=== PATIENT | female | born 1955 | race Caucasian/White ===

== ENCOUNTER 2016-12-12 17:55 | Inpatient (IN) | payer OTHER ==
[2016-12-12 19:54] LABS: Hematocrit 40 % (35-47); Hemoglobin 13.1 g/dl (12.0-16.0); Mean Corpuscular HGB Conc 33 g/dl (31-36); Mean Corpuscular Hemoglobin 28 pg (27-31); Mean Corpuscular Volume 84 fL (80-97); Mean Platelet Volume 8 um3 (7.4-10.4); Red Blood Count 4.72 10^6/ul (4.0-5.4); Red Cell Distribution Width 14 % (10.5-15); White Blood Count 3.8 10^3/ul (3.5-10.8)
[2016-12-12 19:59] LABS: Albumin 4.1 g/dL (3.2-5.2); BUN/Creatinine Ratio 17.9 (8-20); Calcium 9.4 mg/dL (8.6-10.3); EGFR African American 89.2 (>60); EGFR Non-African American 69.4 (>60); Globulin 3.4 g/dL (2-4); Potassium 4.1 mmol/L (3.5-5.0); Total Bilirubin 0.3 mg/dL (0.2-1.0); Total Protein 7.5 g/dL (6.4-8.9)
[2016-12-12] MEDS ORDERED: Heparin VIAL(*) 5000 UNITS/ML VIAL (FIVE THOUSAND) IV SCH (20:00)
[2016-12-12] MEDS: Gabapentin CAP(*) 300 MG PO SCH ×2 (20:06→20:24)
--- NOTE | 2016-12-12 20:51 | ED ---
Shemar Ambrose Aidan, scribed for Homer Carey MD on 12/12/16 at 202 . Headache - HPI Summary HPI Summary: 61 y/o female presents to the ED with a complaint of acute, moderate episodes of FOSTER that have persisted intermittently for months. She sees Dr. Mckeon, who recently found that she had a kulwant occlusion her left dural sinus. Associated symptoms include swelling on her left presybeterian. - History Of Current Complaint Chief Complaint: EDNeurologicalDeficit Stated Complaint: BLOOD CLOT Time Seen by Provider: 12/12/16 18:14 Hx Obtained From: Patient Onset/Duration: Sudden Onset, Still Present Initially Headache Was: Moderate Currently Pain Is: Moderate Timing: Intermittent, Lasting: - episodes have persisted for "months" Character: Unable To Describe Location of Headache: Diffuse Aggravating Factor: Other - unknown Allevating Factors: Other (Noted In Comments) - unknown Associated Signs And Symptoms: Other (Noted In Comments) - swelling on left presybeterian - Allergies/Home Medications Allergies/Adverse Reactions: Allergies Allergy/AdvReac Type Severity Reaction Status Date / Time Sulfa Antibiotics Allergy RASH/SOB Verified 12/09/16 08:55 Home Medications: Home Medications FLUoxetine CAP* [Prozac CAP*] 10 mg PO DAILY 12/12/16 [History Confirmed ] Gabapentin CAP(*) [Neurontin 100 mg CAP(*)] 200 mg PO BID 12/12/16 [History Confirmed 12/12/16] PMH/Surg Hx/FS Hx/Imm Hx Endocrine/Hematology History: Denies: Hx Diabetes Cardiovascular History: Denies: Hx Hypertension, Hx Pacemaker/ICD History: Denies: Hx Renal Disease Sensory History: Denies: Hx Hearing Aid Psychiatric History: Denies: Hx Panic Disorder - Surgical History Surgery Procedure, Year, and Place: 2 C SECTIONS. D & C. LIPOMAS REMOVED FROM BACK. LUMP REMOVED FROM LEFT FOOT Infectious Disease History: No Infectious Disease History: Denies: Traveled Outside the [place] in Last 30 Days - Family History Known Family History: Positive: Hypertension - Social History Occupation: Retired Lives: Alone Alcohol Use: Rare Substance Use Type: Reports: None Smoking Status (MU): Never Smoked Tobacco Review of Systems Constitutional: Negative Eyes: Negative ENT: Negative Respiratory: Negative Gastrointestinal: Negative Genitourinary: Negative Musculoskeletal: Negative Skin: Other - swelling at right presybeterian Negative: Rash, Bruising Positive: Headache. Negative: Weakness, Paresthesia, Numbness, Syncope, Slurred Speech Psychological: Normal All Other Systems Reviewed And Are Negative: Yes Physical Exam Triage Information Reviewed: Yes Vital Signs On Initial Exam: Initial Vitals Temp Pulse Resp BP Pulse Ox 98.1 F 83 18 124/80 95 12/12/16 17:57 12/12/16 17:57 12/12/16 17:57 12/12/16 17:57 12/12/16 17:57 Vital Signs Reviewed: Yes Appearance: Positive: Well-Appearing, No Pain Distress Skin: Positive: Warm, Skin Color Reflects Adequate Perfusion, Dry Head/Face: Positive: Normal Head/Face Inspection, Other - swollen area in left temporal that is nontender, I can feel a temporal pulse through it Eyes: Positive: Normal ENT: Positive: Normal ENT inspection Neck: Positive: Supple, Nontender Respiratory/Lung Sounds: Positive: Clear to Auscultation, Breath Sounds Present Cardiovascular: Positive: RRR Abdomen Description: Positive: Nontender, Soft Bowel Sounds: Positive: Present Musculoskeletal: Positive: Normal Neurological: Positive: Normal Psychiatric: Positive: Affect/Mood Appropriate - Brody Coma Scale Coma Scale Total: 15 Diagnostics - Vital Signs Vital Signs Temp Pulse Resp BP Pulse Ox 12/12/16 18:29 98.1 F 79 16 119/76 98 12/12/16 17:57 98.1 F 83 18 124/80 95 - Laboratory Result Diagrams: 12/12/16 19:41 12/12/16 19:41 Lab Statement: Any lab studies that have been ordered have been reviewed, and results considered in the medical decision making process. Headache Course/Dx - Course Course Of Treatment: Dr. Mckeon recently found that the patient had a kulwant occlusion her left dural sinus. She is very stable and will be admitted for anticoagulation. - Diagnoses Provider Diagnoses: Cerebral venous sinus thrombosis Discharge - Discharge Plan Condition: Stable Disposition: ADMITTED TO [facility] documentation as recorded by the Shemar burks Aidan accurately reflects the service I personally performed and the decisions made by me, Homer Carey MD.
[2016-12-12] MEDS: Acetaminophen TAB* 325 MG PO PRN (20:59)
--- NOTE | 2016-12-12 21:56 | CONS ---
CC: Lydia Maza NP; Avani Mckeon MD NEUROLOGY CONSULTATION: DATE OF CONSULTATION: 12/12/16 REFERRING PROVIDER: Dick Barnes MD LOCATION: She is in the emergency room to be admitted. CHIEF COMPLAINT: Headaches. HISTORY OF PRESENT ILLNESS: Sonali You is a 61-year-old woman who has a remote history of migrain es, which were infrequent by her report until about July. At that point, she started pain in th e left posterior neck region and somewhat down at the shoulder. She was concerned it might have bee n a recurrence of shingles. She started to get pain more in the left occipital area and became pret ty persistent. It would fluctuate in severity from a 2 up to a 9. She would develop photophobia wit h it and have some nausea, but not vomiting. There are no visual symptoms. She was taking Excedrin pretty regularly and then saw Dr. Avani Mckeon in consultation on 11/28/16. She reported some numbn ess on her forehead, I believe on the left side, but no other significant sensory symptoms. PAST MEDICAL HISTORY: Notable for arthritis. Negative rheumatoid workup. She has a history of anx iety and depression. History of migraines as described above. MEDICATIONS: At home consist of: 1. Fluoxetine 10 mg p.o. daily. 2. Gabapentin 100 mg p.o. b.i.d. 3. Ibuprofen, she was taking for headaches 600 mg up to twice per day. ALLERGIES: She is allergic to SULFA antibiotics. REVIEW OF SYSTEMS: Notable for worsened anxiety and depression. She was continually worried about her daughter, who is a patient of mine. She had congenital biliary stenosis and required a liver tr ansplant at about a year of age. She had perioperative strokes and seizures, which were hard to cont rol for many years. Her daughter has done very well, however, in recent years with well- controlled seizures and is an claims attorney and has run marathons. FAMILY HISTORY: Negative for clotting disorders. Nobody has had deep vein thrombosis or pulmonary emboli. The patient herself does not experience shortness of breath. She has experienced some leg swelling in both legs, but no calf pain. SOCIAL HISTORY: She is a nonsmoker. She does not drink alcohol. She lives alone. PHYSICAL EXAMINATION: She is well nourished and well hydrated. She has mild ankle edema bilaterall y. Calves are nontender. Heart is in a regular rate and rhythm. Lungs are clear. Neck: Range of motion is full. Neurologically, pupils react equally from 3.5 to 2 mm. There is no afferent pupillary defect. Fund uscopic exam reveals sharp disks bilaterally. There is no ptosis. Facial musculature is symmetric. Facial sensation to light touch is symmetric. Speech is clear without dysarthria. She has normal muscle tone and strength in the limbs. She is a little tremulous. Gait is normal. She is alert and oriented and extremely loquacious. She is very anxious. Language is fluent. DIAGNOSTIC DATA: Includes an MRI of the brain on 12/09/16, which is reviewed and reveals loss of fl ow void in the left transverse sinus and sigmoid sinus. Dr. Williamson called me that evening. We arra nged for an MR venogram, which was done today. There is evidence of a partial filling defect in the left transverse sinus. It is not entirely occlusive and the rest of the MR venogram looks normal. She had an MRI of the cervical spine on 12/09/16, which revealed some degenerative changes, but no s gilma cord involvement and no significant central canal stenosis. There is no recent blood test to review. She did have a sedimentation rate on 11/28/16 normal at 14 , CRP of 2.0 on the same date, negative rheumatoid factor, SSA and SSB antibodies. SEDA was negative as well. IMPRESSION: Partial cerebral vein thrombosis. I am not sure if it is the cause for headache syndro me, but it certainly could be. I do not see evidence of papilledema. There is no history of clotti ng disorder. RECOMMENDATIONS: I recommend she have blood work drawn for hypercoagulable state to include antipho spholipid antibodies, lupus anticoagulant, activated protein C resistance, protein C, protein S, ant ithrombin III, Leiden factor V and prothrombin gene mutations. After that, I am going to recommend she be started on heparin without boluses. I would recommend that she planned to be transitioned to Coumadin provided she does not develop any hemorrhagic problems in the interim. Her headache shoul d be treated symptomatically with mild opioids or other mild analgesics but nonsteroidals should pro bably be avoided with anticoagulation. She is very anxious and I would recommend increasing gabapen tin and using benzodiazepines on a short-term basis as needed. Discussed my impression with Dr. Barnes and we will follow her with you. [id number]/CPS #: [id number]
--- NOTE | 2016-12-12 22:13 | HP ---
HISTORY AND PHYSICAL: DATE OF ADMISSION: 12/12/16 PRIMARY CARE PHYSICIAN: Lydia Maza NP CHIEF COMPLAINT: Headache, abnormal outpatient MRI. HISTORY OF PRESENT ILLNESS: Ms. You is a pleasant 61-year-old female with a past medical history of arthritis; LUZ, not on CPAP; osteoporosis; and depression/anxiety who presents to the hospital with a headache. The patient states her symptoms have been going on since July. The headache has been one-sided and mostly on the left with occasionally radiation to the neck. The pain seems to wax and wane. The patient also reports some numbness and tingling on the left side of the head. The patient was seen a number of times by Neurology as an outpatient and recently underwent an MRV that showed evidence of venous sinus thrombosis, so the patient was referred to the hospital for further workup and treatment. The patient has had some nausea and vomiting associated with the headaches. She states she has had some joint pain , which is chronic for her. No chest pain. No significant shortness of breath. PAST MEDICAL HISTORY: Arthritis, LUZ, osteoporosis, and depression/anxiety. PAST SURGICAL HISTORY: x2, lipoma removal. HOME MEDICATIONS: 1. Gabapentin 200 mg by mouth 2 times daily. 2. Fluoxetine 10 mg by mouth daily. ALLERGIES: SULFA DRUGS. FAMILY HISTORY: Significant for her mother with fibrohistiocytoma, father with CHF and peripheral vascular disease. Paternal grandmother with CVA. SOCIAL HISTORY: The patient has no history of tobacco abuse. Rare alcohol use. No illicit drug use. REVIEW OF SYSTEMS: I think the patient's review of systems are likely driven significantly by anxiety. She reports joint pains, occasional subjective chills , occasional epigastric and left upper quadrant pain. Denies any dysuria. Remainder of 12-point review of systems negative except for that is noted in the HPI. PHYSICAL EXAMINATION GENERAL: The patient is a middle-aged female, sitting in chair, in no apparent distress. VITAL SIGNS: On admission, temperature 98.1, heart rate of 79, respiratory rate of 16, O2 saturation 98% on room air, blood pressure is 119/76. HEENT: Pupils are equal, round, and reactive to light and accommodation. Anicteric sclerae. Moist mucous membranes. CARDIOVASCULAR: Regular rate and rhythm. S1, S2 present. No murmurs, gallops , and rubs. LUNGS: Clear to auscultation bilaterally. Some mild right upper lobe rales. ABDOMEN: Soft, nontender, nondistended. Bowel sounds positive. EXTREMITIES: No cyanosis, clubbing, or edema. NEURO: The patient is alert and oriented x3. Questionable diminished sensation on V1 on the left side. Otherwise, neuro exam is unremarkable. DIAGNOSTIC STUDIES/LAB DATA: Labs pending at this time. Outpatient MRI from today shows findings consistent with slow flow within the left transverse and sigmoid system with a filling defect consistent with nonocclusive thrombus. ASSESSMENT AND PLAN: Venous sinus thrombosis in a 61-year-old female with a past medical history of arthritis, obstructive sleep apnea, osteoporosis, depression, and anxiety. 1. Venous sinus thrombosis. Appreciate Neurology assistance. We will start the patient on a heparin drip, we will order hypocoagulable workup. We will need to determine what the plan for more long-term therapy will be. We will increase the patient's gabapentin to 300 mg 2 times daily. We will also write for additional analgesics. 2. Depression and anxiety. We will continue the patient's home fluoxetine. We will also write for Xanax as needed for anxiety. 3. DVT prophylaxis. Heparin drip. 4. Code status. The patient is a full code. TIME SPENT: Total time spent on this admission 45 minutes with over half the time spent [id number] with the patient in counseling and coordinating care. CC: Lydia Maza NP * [id number]/CPS #: [id number] MTDD
[2016-12-12] MEDS: ALPRAZolam TAB* 0.25 MG PO PRN (23:07)
[2016-12-12] MEDS: Heparin DRIP 25,000 UNITS(*) 25,000 UNITS/500 ML BAG IVPB SCH (23:14)
[2016-12-13] MEDS: Acetaminophen TAB* 325 MG PO PRN (05:47)
[2016-12-13] MEDS: Gabapentin CAP(*) 300 MG PO SCH ×2 (07:37→20:10)
[2016-12-13] MEDS: FLUoxetine CAP* 10 MG PO SCH (07:40)
[2016-12-13] MEDS: oxyCODONE TAB* 5 MG TAB PO PRN ×2 (11:49→22:23)
--- NOTE | 2016-12-13 11:49 | CONS ---
NEUROLOGY FOLLOWUP NOTE: DATE OF FOLLOWUP: 12/13/16 HOSPITALIST: Dr. Corcoran. LOCATION: She is in room 408. CHIEF COMPLAINT: Headache, cerebral vein thrombosis. INTERVAL HISTORY: Since yesterday Sonali continues with headache but feels that gabapentin is helpful. It remains in the left side and there is a burning component in the left occiput and shoulder. It started out with a rash in the left shoulder, which was felt to be shingles. Her cerebral vein thrombosis is on the right; however, so it is not clearly related. MEDICATIONS: Reviewed and she is started on Coumadin today and remains on heparin infusion. Gabapentin 300 mg p.o. b.i.d., alprazolam 0.25 mg p.o. q.8 hours p.r.n. PHYSICAL EXAM: She is well-hydrated and well-nourished. Temperature 98.3 orally, blood pressure 94/49, heart rate in the 80s and regular, and respirations 16. Neck: Range of motion is normal. There are no cervical bruits. Neurologically, pupils are equal and reactive to light from 4 to 2.5 mm. Funduscopic exam reveals sharp discs. There is no ptosis. Eye movements are full. There is no diplopia. Facial musculature is symmetric. Palate and tongue are normal and speech is clear. Language is fluent and memory is intact. IMPRESSION: Cerebral vein thrombosis, questionably causing her headaches. In any case, it does appear to be real on both MRI and MR venogram and so anticoagulation will proceed. Coumadin has been started. Target INR should be 2.0 to 3.0. Headaches are at least partially controlled on gabapentin and that will be continued. We will continue to follow. [id number]/[facility] #: [id number] [facility]
--- NOTE | 2016-12-13 15:58 | PN ---
Subjective Date of Service: 12/13/16 Interval History: Patient c/o headache in the back of her head today. This is new. Objective Active Medications: Acetaminophen (Tylenol Tab*) 650 mg PO Q4H PRN PRN Reason: PAIN Last Admin: 12/13/16 05:47 Dose: 650 mg Alprazolam (Xanax Tab*) 0.25 mg PO Q8H PRN PRN Reason: ANXIETY Last Admin: 12/12/16 23:07 Dose: 0.25 mg Fluoxetine HCl (Prozac Cap*) 10 mg PO DAILY [facility] Last Admin: 12/13/16 07:40 Dose: 10 mg Gabapentin (Neurontin Cap(*)) 300 mg PO BID [facility] Last Admin: 12/13/16 07:37 Dose: Not Given Heparin Sodium (Porcine) (Heparin Vial(*)) 0 units IV .PER PROTOCOL ASHWIN PRN Reason: Protocol Last Admin: 12/12/16 23:12 Dose: 5,850 units Heparin Sodium/Dextrose (Heparin Drip 25,000 Units(*)) 25,000 units in 500 mls @ 0 mls/hr IVPB .PER RATE ASHWIN; Per Protocol PRN Reason: Protocol Last Admin: 12/12/16 23:14 Dose: 25 mls/hr Oxycodone HCl (Roxycodone Tab*) 5 mg PO Q4H PRN PRN Reason: PAIN Last Admin: 12/13/16 11:49 Dose: 5 mg Pharmacy Profile Note (Coumadin Daily Reminder*) 1 note FOLLOW UP 1700 [facility] Warfarin Sodium (Coumadin Tab(*)) 5 mg PO DAILY@1700 [facility] PRN Reason: Protocol Vital Signs 12/12/16 12/12/16 12/12/16 19:30 19:42 19:45 Temperature 98.4 F 98.4 F Pulse Rate 74 74 Respiratory 16 16 16 Rate Blood Pressure 139/84 139/84 (mmHg) O2 Sat by Pulse 98 98 Oximetry 12/12/16 12/12/16 12/12/16 20:06 20:08 22:06 Temperature 98.1 F Pulse Rate 68 Respiratory 16 16 16 Rate Blood Pressure 120/83 (mmHg) O2 Sat by Pulse 97 Oximetry 12/12/16 12/12/16 12/12/16 23:07 23:29 23:30 Temperature 97.6 F Pulse Rate 69 Respiratory 16 16 Rate Blood Pressure 98/60 106/66 (mmHg) O2 Sat by Pulse 100 Oximetry 12/13/16 12/13/16 12/13/16 01:07 05:18 07:28 Temperature 97.8 F 98.3 F Pulse Rate 79 82 Respiratory 24 16 16 Rate Blood Pressure 99/56 94/49 (mmHg) O2 Sat by Pulse 97 99 Oximetry 12/13/16 12/13/16 12/13/16 11:42 11:49 13:49 Temperature 98.8 F Pulse Rate 74 Respiratory 16 18 20 Rate Blood Pressure 112/71 (mmHg) O2 Sat by Pulse 96 Oximetry Oxygen Devices in Use Now: None Appearance: WD/WN woman lying in bed in NAD Eyes: No Scleral Icterus Ears/Nose/Mouth/Throat: Clear Oropharnyx Neck: No Thyroid Enlargement, Masses Respiratory: Clear to Auscultation Cardiovascular: - - S1S2 daniela Abdominal: NL Sounds; No Tenderness; No Distention, No Hepatosplenomegaly Lymphatic: No Cervical Adenopathy Extremities: No Edema, No Clubbing, Cyanosis Skin: No Rash or Ulcers, No Nodules or Sclerosis Neurological: Alert and Oriented x 3 Result Diagrams: 12/12/16 19:41 12/12/16 19:41 Assess/Plan/Problems-Billing Assessment: 61 year old woman with headaches found to have kulwant thrombosis. - Patient Problems (1) Cerebral venous sinus thrombosis, acute Current Visit: Yes Status: Acute Code(s): G08 - INTRACRANIAL AND INTRASPINAL PHLEBITIS AND THROMBOPHLEBITIS SNOMED Code(s): 981878086 Comment: I am not convinced this is the cause of her headache. unusual that it would. Nevertheless, requires anticoagulation - continue heparin and coumadin. (2) Depression Current Visit: Yes Status: Acute Code(s): F32.9 - MAJOR DEPRESSIVE DISORDER , SINGLE EPISODE, UNSPECIFIED SNOMED Code(s): 73169715 Comment: Continue Fluoxetine (3) DVT prophylaxis Current Visit: Yes Status: Acute Code(s): RPD9019 - SNOMED Code(s): 018970490 Comment: heparin (4) Full code status Current Visit: Yes Status: Acute Code(s): Z78.9 - OTHER SPECIFIED HEALTH STATUS SNOMED Code(s): 083058128
[2016-12-13] MEDS: Warfarin TAB(*) 5 MG PO SCH (16:51)
[2016-12-13 21:52] LABS: Hematocrit 34 % (35-47); Hemoglobin 11.4 g/dl (12.0-16.0); Mean Corpuscular HGB Conc 33 g/dl (31-36); Mean Corpuscular Hemoglobin 28 pg (27-31); Mean Corpuscular Volume 84 fL (80-97); Mean Platelet Volume 8 um3 (7.4-10.4); Red Blood Count 4.07 10^6/ul (4.0-5.4); Red Cell Distribution Width 14 % (10.5-15); White Blood Count 3.7 10^3/ul (3.5-10.8)
[2016-12-13] MEDS: Heparin DRIP 25,000 UNITS(*) 25,000 UNITS/500 ML BAG IVPB SCH (22:20)
[2016-12-14] MEDS: oxyCODONE TAB* 5 MG TAB PO PRN ×3 (06:19→18:57)
[2016-12-14 07:23] LABS: Hematocrit 39 % (35-47); Hemoglobin 13.1 g/dl (12.0-16.0); Mean Corpuscular HGB Conc 33 g/dl (31-36); Mean Corpuscular Hemoglobin 28 pg (27-31); Mean Corpuscular Volume 84 fL (80-97); Mean Platelet Volume 9 um3 (7.4-10.4); Red Blood Count 4.67 10^6/ul (4.0-5.4); Red Cell Distribution Width 15 % (10.5-15); White Blood Count 3.5 10^3/ul (3.5-10.8)
[2016-12-14] MEDS: Gabapentin CAP(*) 300 MG PO SCH ×2 (09:12→21:01)
[2016-12-14] MEDS: FLUoxetine CAP* 10 MG PO SCH (09:12)
--- NOTE | 2016-12-14 13:37 | CONS ---
NEUROLOGY FOLLOWUP CONSULTATION: DATE OF FOLLOWUP: 12/14/16 LOCATION: She is an inpatient in [facility]. HOSPITALIST: Dr. Dick Barnes. CHIEF COMPLAINT: Head pain, cerebral vein thrombosis. INTERVAL HISTORY: Since yesterday Sonali's pain fluctuates between a 2 and 4 in response to oxycodone. She remains on gabapentin 300 mg twice per day as well. I went over the history with her again. It was about July she noted pain and hypersensitivity and a rash in the left scapular region. It migrated up until the left side of the neck and head. She has had fluctuating head pains ever since. She did not seek medical attention for it initially, I believe, it took at least a few weeks if not a couple of months. She continues to have hypersensitivity and pain in that distribution but it varies quite a bit. She remains extremely anxious and worried about catastrophic events and that she will not be able to care for her children who are both in their 30s and employed and at least one is . MEDICATIONS: Reviewed and she is: 1. Gabapentin 300 mg p.o. b.i.d. 2. Heparin infusion. 3. Warfarin currently 5 mg p.o. q. day. 4. Oxycodone 5 mg p.o. q.4 hours p.r.n. pain. 5. Fluoxetine 10 mg p.o. q. day. 6. Alprazolam 0.25 mg q.8 hours p.r.n. anxiety. PHYSICAL EXAM: She remains afebrile, blood pressure 132/79, heart rate in the 80s and regular. There are some old small circumscribed scars in the left scapular region and a little bit up in to the left shoulder out to the acromion. Facial musculature is symmetric. Speech is clear. I do not see any rashes on the back of the neck or skull. Pupils are equal. There is no ptosis. She remains anxious and occasionally tearful. She remains somewhat inattentive and hardly keeps on focus. LABORATORY DATA: Today notable for a normal CBC other than 51.6% lymphocytes. BUN today is 16. IMPRESSION: Cerebral vein thrombosis which may be secondary to Varicella zoster recurrence. There are reports is in the literature. Her pain is on the same side as the occlusion contrary to my note from yesterday which was erroneous. Although it is quite late in the onset of her syndrome, I think I will go ahead and start the antiviral in the form of famciclovir. She will continue intravenous heparin until her Coumadin is therapeutic. Her INR this morning is 0.91. She will continue gabapentin and hopefully we can get rid of the oxycodone pretty quickly as well. I have discussed the rationale to the antivirals as well as for the anticoagulants with Sonali once again. CC: Lydia Maza NP * [id number]/[facility] #: [id number] [facility]
--- NOTE | 2016-12-14 13:46 | PN ---
Subjective Date of Service: 12/14/16 Interval History: Patient says headache much better with Oxycodone. Objective Active Medications: Acetaminophen (Tylenol Tab*) 650 mg PO Q4H PRN PRN Reason: PAIN Last Admin: 12/13/16 05:47 Dose: 650 mg Alprazolam (Xanax Tab*) 0.25 mg PO Q8H PRN PRN Reason: ANXIETY Last Admin: 12/12/16 23:07 Dose: 0.25 mg Famciclovir (Famvir(Nf)) 500 mg PO TID [facility] Fluoxetine HCl (Prozac Cap*) 10 mg PO DAILY [facility] Last Admin: 12/14/16 09:12 Dose: 10 mg Gabapentin (Neurontin Cap(*)) 300 mg PO BID [facility] Last Admin: 12/14/16 09:12 Dose: 300 mg Heparin Sodium (Porcine) (Heparin Vial(*)) 0 units IV .PER PROTOCOL [facility] PRN Reason: Protocol Last Admin: 12/12/16 23:12 Dose: 5,850 units Heparin Sodium/Dextrose (Heparin Drip 25,000 Units(*)) 25,000 units in 500 mls @ 0 mls/hr IVPB .PER RATE ASHWIN; Per Protocol PRN Reason: Protocol Last Admin: 12/13/16 22:20 Dose: 18 mls/hr Oxycodone HCl (Roxycodone Tab*) 5 mg PO Q4H PRN PRN Reason: PAIN Last Admin: 12/14/16 10:45 Dose: 5 mg Pharmacy Profile Note (Coumadin Daily Reminder*) 1 note FOLLOW UP 1700 [facility] Last Admin: 12/13/16 16:51 Dose: 1 note Warfarin Sodium (Coumadin Tab(*)) 5 mg PO DAILY@1700 [facility] PRN Reason: Protocol Last Admin: 12/13/16 16:51 Dose: 5 mg Vital Signs 12/13/16 12/13/16 12/13/16 13:49 15:41 19:26 Temperature 98.6 F 97.8 F Pulse Rate 79 78 Respiratory 20 20 24 Rate Blood Pressure 137/84 109/75 (mmHg) O2 Sat by Pulse 97 99 Oximetry 12/13/16 12/13/16 12/13/16 20:10 20:12 22:00 Temperature Pulse Rate Respiratory 16 16 18 Rate Blood Pressure (mmHg) O2 Sat by Pulse Oximetry 12/13/16 12/13/16 12/14/16 22:10 22:23 00:04 Temperature 98.2 F Pulse Rate 64 Respiratory 18 18 16 Rate Blood Pressure 100/54 (mmHg) O2 Sat by Pulse 98 Oximetry 12/14/16 12/14/16 12/14/16 00:23 03:26 06:19 Temperature 98.6 F Pulse Rate 65 Respiratory 16 16 16 Rate Blood Pressure 93/55 (mmHg) O2 Sat by Pulse 98 Oximetry 12/14/16 12/14/16 12/14/16 07:26 08:00 09:12 Temperature 98.0 F Pulse Rate 84 Respiratory 16 14 14 Rate Blood Pressure 140/92 (mmHg) O2 Sat by Pulse 98 Oximetry 12/14/16 12/14/16 10:45 11:24 Temperature Pulse Rate 83 Respiratory 14 16 Rate Blood Pressure 132/79 (mmHg) O2 Sat by Pulse 99 Oximetry Oxygen Devices in Use Now: None Appearance: WD/WN woman sitting up in bed in NAD Eyes: No Scleral Icterus Ears/Nose/Mouth/Throat: NL Teeth, Lips, Gums Neck: No Thyroid Enlargement, Masses Respiratory: Clear to Auscultation Cardiovascular: - - S1S2 daniela Abdominal: NL Sounds; No Tenderness; No Distention, No Hepatosplenomegaly Lymphatic: No Cervical Adenopathy Extremities: No Clubbing, Cyanosis Skin: No Rash or Ulcers Neurological: Alert and Oriented x 3 Result Diagrams: 12/14/16 06:40 12/14/16 06:39 Assess/Plan/Problems-Billing Assessment: 61 year old woman with headaches found to have kulwant thrombosis. - Patient Problems (1) Cerebral venous sinus thrombosis, acute Current Visit: Yes Status: Acute Code(s): G08 - INTRACRANIAL AND INTRASPINAL PHLEBITIS AND THROMBOPHLEBITIS SNOMED Code(s): 974645601 Comment: I am not convinced this is the cause of her headache. unusual that it would. Neurology thinks that Zoster may be a component and has added Famcyclovir. Nevertheless, requires anticoagulation - continue heparin and coumadin. I spoke to her about alternatives such as lovenox/coumadin and eliquis or xarelto. After discussing the risks benefits of each she prefers this regimen. (2) Depression Current Visit: Yes Status: Acute Code(s): F32.9 - MAJOR DEPRESSIVE DISORDER , SINGLE EPISODE, UNSPECIFIED SNOMED Code(s): 88130879 Comment: Continue Fluoxetine (3) DVT prophylaxis Current Visit: Yes Status: Acute Code(s): PKI2177 - SNOMED Code(s): 562818573 Comment: heparin (4) Full code status Current Visit: Yes Status: Acute Code(s): Z78.9 - OTHER SPECIFIED HEALTH STATUS SNOMED Code(s): 165444990
[2016-12-14] MEDS: FAMCICLOVIR 250 MG PO SCH ×2 (14:15→21:01)
[2016-12-14] MEDS: Warfarin TAB(*) 5 MG PO SCH (18:00)
[2016-12-14] MEDS: Acetaminophen TAB* 325 MG PO PRN (21:10)
[2016-12-15] MEDS: oxyCODONE TAB* 5 MG TAB PO PRN ×3 (01:24→15:09)
[2016-12-15] MEDS: Acetaminophen TAB* 325 MG PO PRN (04:52)
[2016-12-15] MEDS: ALPRAZolam TAB* 0.25 MG PO PRN (04:52)
[2016-12-15] MEDS: Heparin DRIP 25,000 UNITS(*) 25,000 UNITS/500 ML BAG IVPB SCH (05:44)
[2016-12-15] MEDS: Gabapentin CAP(*) 300 MG PO SCH (09:01)
[2016-12-15] MEDS: FLUoxetine CAP* 10 MG PO SCH (09:02)
[2016-12-15] MEDS: FAMCICLOVIR 250 MG PO SCH ×2 (09:02→13:43)
[2016-12-15 15:47] VITALS: BP 133/71
[2016-12-15] MEDS ORDERED: Rivaroxaban TAB(*) 15 MG PO SCH (18:00)
[2016-12-15 19:20] LABS: Beta 2 Glycoprotein IgG <9.4 U/mL
--- NOTE | 2016-12-15 22:36 | PN ---
NEUROLOGY FOLLOWUP NOTE: DATE OF FOLLOWUP: 12/15/16 HOSPITALIST: Dr. Corcoran. LOCATION: She is an inpatient in room 408. CHIEF COMPLAINT: Cerebral vein thrombosis, headache. INTERVAL HISTORY: Since yesterday, Sonali feels about the same. She still has some left hemicranial headache, which responds nicely to hydrocodone. When the hydrocodone wears off, it climbs to about a 6 in intensity. With the hydrocodone, it is more like a 2 or a 4. She has no new symptoms to report. No change in vision, intestinal problems, or intestinal pain. I spoke with Dr. Corcoran. He had spoken with Sonali and they decided to switch her to Xarelto from Coumadin. MEDICATIONS: Medications are reviewed and she is to receive her first dose of: 1. Apixaban later this evening. 2. She is on oxycodone 5 mg p.o. q.4 hours p.r.n. headache. 3. Gabapentin 300 mg p.o. b.i.d. 4. Fluoxetine 10 mg p.o. daily. 5. Famvir 500 mg p.o. t.i.d. 6. Alprazolam 0.25 mg q.8 hours p.r.n. PHYSICAL EXAMINATION: She is well-nourished and well-hydrated. Temperature 97.8 orally, blood pressure 133/71, heart rate 90 and regular, respirations 16. Heart is in a regular rate and rhythm without murmurs. Neurologically, pupils react equally from 4 to 2.5 mm. Funduscopic exam reveals sharp discs bilaterally. There is no ptosis. Facial musculature is symmetric. Speech is clear without dysarthria. Language is fluent. Gait and station are normal. She is alert and oriented to person, place, and time. LABORATORY DATA: Recent laboratory data notable for her PTT been 48.0 at 06:17 this morning. She has had some coag test notable for normal activated protein C resistance, normal antithrombin 3 activity. IMPRESSION: Headache and cerebral vein thrombosis. There is some possibility it is related to a zoster episode, but that is not completely substantiated. At any case, her headache is under reasonably good control and she is now on antiviral and being anticoagulated. There are no studies I am aware of showing Xarelto being used for cerebral vein thrombosis, but I think it makes sense at least theoretically. Also, Sonali is extremely anxious and it has been difficult to get her INR up on Coumadin and so I think that it is reasonable to go to Xarelto especially as I expect her not to be on it more than 3 to 6 months. Anticipate followup MRV imaging to help make that determination. She will be discharged either tonight or tomorrow morning and she will follow up with Dr. Mckeon in our office. [id number]/[facility] #: [id number] ZACK
--- NOTE | 2016-12-16 15:12 | DS ---
DISCHARGE SUMMARY: DATE OF ADMISSION: 12/12/16 DATE OF DISCHARGE: 12/15/16 ADMISSION DIAGNOSES: 1. Venous sinus thrombosis. 2. Depression. 3. Anxiety. 4. Headache. DISCHARGE DIAGNOSES: 1. Venous sinus thrombosis. 2. Depression. 3. Anxiety. 4. Headache. HOSPITAL COURSE: The patient is a 61-year-old woman who presented to [facility] with a chief complaint of headache. Please see H and P for further details. The patient was imaged and found to have venous sinus thrombosis, although it was unclear that this was actually causing her pain. She was started on anticoagulation with appropriate therapy. She was started on heparin and Coumadin. Long conversations were held with the patient every day concerning her treatment course. In the end, she wanted to go with Xarelto , although technically it is not approved for cerebral vein thrombosis. There is no reason to believe that it should not work just as well as it does on other DVTs. Therefore, the patient will be stopped on the heparin today and started on Xarelto and follow up with her PCP as well as Dr. Narayanan. She will need followup imaging as well. Again, since it was unclear about her headache, she should follow up with Dr. Narayanan concerning this as well. I have given her oxycodone for pain as this seems to help her as well and I have given her Xanax for anxiety, which she readily admits that she has a great deal of issues with. She also had coagulation profile sent out and so far we received the activated protein C, antithrombin III activity, and beta-2 glycoprotein all of which were unremarkable. PHYSICAL EXAMINATION ON THE DATE OF DISCHARGE: Well-developed, well-nourished woman, sitting up in bed, in no acute distress. Vital Signs: Temperature 97.9 degrees, heart rate 100 beats per minute, respiratory rate 16 breaths per minute , pulse ox 95%, blood pressure 141/91. HEENT: Normocephalic, atraumatic. Pupils equal, round, and reactive to light. Moist mucous membranes. Neck: Supple. No JVD, bruits, palpable thyroid, or lymphadenopathy. Chest: Clear to auscultation and percussion bilaterally. Cardiovascular Exam: S1, S2 appreciated. Regular rate and rhythm. Abdominal Exam: Positive bowel sounds in all 4 quadrants, soft, nontender, nondistended. Extremities: No cyanosis, clubbing, or edema. +2 peripheral pulses bilaterally. Neuro: Alert and oriented x3. Moves all extremities. Skin: No distinct rashes, no abnormalities. STUDIES DONE WHILE IN THE HOSPITAL: Head MRI, 12/12/16, again noted are findings consistent with slow flow within the left transverse sigmoid consistent with a filling defect at the transverse and sigmoid complex consistent with nonocclusive thrombus. Differential includes impaired venous outflow. Recommend correlation with dedicated imaging of the more proximal venous system of the neck and chest. DISCHARGE MEDICATIONS: 1. Xarelto 15 mg twice a day for 3 weeks, then Xarelto 20 mg a day thereafter. 2. Famciclovir 500 mg twice daily. 3. Alprazolam 0.25 mg every 8 hours as needed. 4. Oxycodone 5 mg every 4 hours as needed for headache. 5. Fluoxetine 10 mg daily. 6. Gabapentin 300 mg twice daily. DISCHARGE PLAN: The patient will be discharged home. She should follow up with her PCP within 1 week, follow up with Dr. Narayanan in 1 to 2 weeks, and come to the ED if symptoms recur or if she develops worrisome symptoms. TIME SPENT: Over 50 minutes was spent on this discharge summary; more than 30 minutes of which was spent in direct [id number] contact with the patient, evaluation, physical exam, counseling, and coordination of care. CC: Dr. Du Narayanan; Lydia Maza NP* [id number]/[facility] #: [id number] MTDD
[2016-12-16 23:37] LABS: Phospholipid Ab IgG < 9.4 GPL; Phospholipid Ab IgM, S < 9.4 MPL
[2016-12-17 09:15] LABS: Factor V Leiden Mutation Negative (Negative); Prothrombin 20210 Mutation Negative (Negative)
== END 2016-12-15 18:45 | disposition home or self-care (01) | DRG 58 ==
LOC: ED 17:55 → MED 18:31 → OBSVTOIN 12-14 09:00 → UNDODISIN 12-15 19:45
PROVIDERS: ADMIT Hospitalist; ATTEND Internal Medicine
DX: G08 Intracranial and intraspinal phlebitis and thrombophlebitis (principal); F32.9 Major depressive disorder, single episode, unspecified; F41.9 Anxiety disorder, unspecified; G47.33 Obstructive sleep apnea (adult) (pediatric); M19.90 Unspecified osteoarthritis, unspecified site; M81.0 Age-related osteoporosis without current pathological fracture; G43.909 Migraine, unspecified, not intractable, without status migrainosus; H53.149 Visual discomfort, unspecified; R21 Rash and other nonspecific skin eruption; R51 Headache; G89.29 Other chronic pain; Z88.2 Allergy status to sulfonamides; Z82.49 Family history of ischemic heart disease and other diseases of the circulatory system; Z80.9 Family history of malignant neoplasm, unspecified; Z82.3 Family history of stroke; Z79.01 Long term (current) use of anticoagulants
CPT/HCPCS: 36415; 80053; 81240; 81241; 84520; 85025; 85300; 85303; 85306; 85307; 85610; 85613; 85730; 86146; 86147; 93005; A9270-GY; G0378; J1644